=== PATIENT | male | born 1985 | race Caucasian/White ===

== ENCOUNTER 2018-02-22 12:19 | Emergency (ER) | payer SELFPAY ==
[~2018-02-22] VITALS: Ht 175.3 cm; Wt 83.9 kg
[2018-02-22 12:32] VITALS: BP 120/61
[2018-02-22] MEDS ORDERED: Naproxen 500mg tab ORAL ONE (12:45)
[2018-02-22] MEDS ORDERED: NAPROXEN500 M2 ORAL (12:58)
--- NOTE | 2018-02-22 12:58 | Emergency Room Report ---
History of Present Illness General Chief Complaint: Pain Source: Patient Present Illness HPI 34-year-old male with history of opiate abuse here complaining of pain in the left pectoral muscle after hearing good pop in the gym today. She is complaining of pain 10 out of 10 with radiation to left shoulder unable to lift the left shoulder, complaining of numbness below the pectoralis muscle, denies tingling. Vacation from pain. Denies chest pain, shortness of breath, palpitation, and all other associated symptoms. Denies abdominal pain. Patient is self pay and wants to know if he can do surgery. Allergies: Coded Allergies: No Known Allergies (Unverified , 02/22/18) Patient History Past Medical History: see triage record Past Surgical History: none Pertinent Family History: none Immunizations: UTD Reviewed Nursing Documentation: PMH: Agreed; PSxH: Agreed Nursing Documentation-PMH Past Medical History: No Stated History Review of Systems All Other Systems: negative except mentioned in HPI Physical Exam Vital Signs Date Time Temp Pulse Resp B/P (MAP) Pulse Ox O2 Delivery O2 Flow Rate FiO2 02/22/18 12:22 97.5 75 17 120/61 98 Room Air Sp02 EP Interpretation: reviewed, normal General Appearance: normal inspection, well appearing, no apparent distress, alert, GCS 15 Head: normocephalic, atraumatic Eyes: bilateral eye normal inspection, bilateral eye PERRL ENT: normal ENT inspection, normal pharynx, no angioedema Neck: normal inspection, full range of motion, supple Respiratory: normal inspection, lungs clear, no respiratory distress, no wheezing Cardiovascular #1: normal inspection, normal peripheral pulses, regular rate, rhythm, no edema Gastrointestinal: normal inspection, non tender, soft Rectal: deferred Genitourinary: deferred Musculoskeletal: digits/nails normal, gait/station normal, swelling - left pectoralis msucle Neurologic: normal inspection, alert, oriented x3, responsive Psychiatric: normal inspection, judgement/insight normal, memory normal Skin: normal inspection, normal color, no rash, warm/dry Lymphatic: normal inspection, no adenopathy Medical Decision Making PA Attestation all diagnoses and treatment plans were reviewed and discussed my supervising physician Dr. Roth Diagnostic Impression: Primary Impression: Pectoralis muscle strain Additional Impression: Pectoralis muscle rupture ER Course 34-year-old male with history of opiate abuse here complaining of pain in the left pectoral muscle after hearing good pop in the gym today. She is complaining of pain 10 out of 10 with radiation to left shoulder unable to lift the left shoulder, complaining of numbness below the pectoralis muscle, denies tingling. Vacation from pain. Denies chest pain, shortness of breath, palpitation, and all other associated symptoms. Denies abdominal pain. Patient is self pay and wants to know if he can do surgery. Ddx considered but are not limited to pectoralis muscle rupture, across muscles strain. Vital signs: are WNL, pt. is afebrile H&PE are most consistent with as well as possible ruptured ORDERS: naproxen, patient refuses to have x-rays or MRI done here as he wants to go to the referred orthopedic facility to get everything done in 1 second. ED INTERVENTIONS: None required at this time. DISCHARGE: At this time pt. is stable for d/c to home. Will provide printed patient care instructions, and any necessary prescriptions. Care plan and follow up instructions have been discussed with the patient prior to discharge. Last Vital Signs Date Time Temp Pulse Resp B/P (MAP) Pulse Ox O2 Delivery O2 Flow Rate FiO2 02/22/18 12:32 97.5 17 120/61 98 Room Air 02/22/18 12:22 75 Disposition: HOME, SELF-CARE Condition: Stable Scripts Naproxen* (NAPROXEN*) 500 Mg Tablet 500 MG ORAL TWICE A DAY, #30 TAB Prov: Jaycee Mercedes 02/22/18 Referrals: NOT CHOSEN IPA/,REFERRING (PCP) Patient Instructions: Pectoralis Major Rupture With [facility] Jaycee Mercedes Feb 22, 2018 12:58
[2018-02-22 13:04] VITALS: BP 120/61
== END 2018-02-22 13:04 | disposition home or self-care (01) ==
LOC: EMR 12:53
DX: S29.011A Strain of muscle and tendon of front wall of thorax, initial encounter (principal); S21.102A Unspecified open wound of left front wall of thorax without penetration into thoracic cavity, initial encounter; X58.XXXA Exposure to other specified factors, initial encounter; Y92.39 Other specified sports and athletic area as the place of occurrence of the external cause
CPT/HCPCS: 99282